=== PATIENT | male | born 1995 | race Two or more races ===

== ENCOUNTER 2016-11-23 06:56 | Day surgery (SDC) | payer OTHER ==
[~2016-11-23 06:56] MED LIST: BUPIVACAINE HCL 0.25 % INJ/PF (2.5 MG/1 ML) 30 ML VIAL ONE; CEFAZOLIN 2 GM/D5W RTU 2 GM/50 ML RTUPB IV PRN; LACTATED RINGERS 1000 ML IV PRN; LIDOCAINE 0.5% INJ-PF (5 MG/ML) 50 ML SDV SUBCUT PRN
[2016-11-23] MEDS ORDERED: MIDAZOLAM 2 MG/2 ML INJ ONE (09:03)
[2016-11-23] MEDS ORDERED: FENTANYL CITRATE INJ/PF 250 MCG/5 ML AMPULE ONE (09:03)
[2016-11-23] MEDS ORDERED: PROPOFOL INJ 200 MG/20 ML VIAL IV ONE (09:04)
[2016-11-23] MEDS ORDERED: PROMETHAZINE HCL INJ 25 MG/1 ML VIAL IV PRN ×2 (09:30)
[2016-11-23] MEDS ORDERED: ONDANSETRON HCL INJ/PF 4 MG/2 ML SDV IV PRN (09:30)
[2016-11-23] MEDS ORDERED: FENTANYL CITRATE INJ/PF 100 MCG/2 ML AMPUL IV PRN ×3 (09:30)
[2016-11-23] MEDS ORDERED: OXYCODONE-ACETAMINOPHEN 5-325 MG TABLET PO PRN ×2 (09:30)
[2016-11-23] MEDS ORDERED: MEPERIDINE HCL/PF INJ 25 MG/1 ML DISP.SYRIN IV PRN (09:30)
[2016-11-23] MEDS ORDERED: MORPHINE SULFATE 10 MG/ML INJ IV PRN (09:30)
[2016-11-23] MEDS ORDERED: DIPHENHYDRAMINE HCL 50 MG/ML VIAL IV PRN (09:30)
--- NOTE | 2016-11-23 10:33 | OPERATIVE REPORT E ---
Operative Report NAME: Carlos Hensley : 1995 AGE: 21Y DATE OF SURGERY: 11/23/2016 ROOM: PREOPERATIVE DIAGNOSIS: BILIARY DYSKINESIA. POSTOPERATIVE DIAGNOSIS: BILIARY DYSKINESIA. OPERATION: Laparoscopic cholecystectomy. SURGEON: Rebecca Gates M.D. INFUSION PHARMACIST: Lc. BLOOD LOSS: 5 mL. FLUIDS: 1100 crystalloid. COMPLICATIONS: There were no complications. INDICATIONS FOR OPERATION: The patient is a 21-year-old male with history of episodes of right upper quadrant pain. On workup had a low ejection fraction consistent with biliary dyskinesia. He was scheduled for elective cholecystectomy. PROCEDURE: In the supine position under general anesthesia, the patient's abdomen was sterilely prepped and draped after clipping with ChloraPrep in the usual fashion. A timeout was done. The skin below the umbilicus was infiltrated with 0.25% Marcaine, several milliliters, and incision was made with scalpel. The incision was carried down to the fascia, and a 1 cm Shell was inserted under direct vision at this location. A 5 mm trochar was then inserted in the epigastrium and two 5 mm trochars in the right upper quadrant. The patient was then placed in a head-up, [id number] position. The gallbladder was grasped with the fundus and infundibulum. The gallbladder was noted to be normal and very pliable, with no evidence of inflammation. The cystic duct was clearly identified and clipped x2 proximally after being dissected and once distally transected with kavya. The artery was also found within a thin envelope of peritoneal tissue, and this was also clipped x2 proximally and once distally and transected. The gallbladder was then dissected from the liver bed with Bovie using the L hook. There were no tears made in the gallbladder during the dissection. There was minimal bleeding from the liver bed controlled with coagulation. The gallbladder was then placed in a gallbladder bag and retrieved through the umbilical port. At this point, the trochars were inspected on removal. There was no evidence of bleeding. The umbilical fascia was then closed with 2 interrupted 0 Vicryl, and the skin was closed with subcuticular 4-0 Monocryl. Steri-Strips and dressings were applied. The patient was then extubated and taken to the recovery room awake in stable condition. Needle, instrument, and sponge counts were correct. DICTATING PHYSICIAN: REBECCA GATES M.D. [id number] PHY#: [id number] ID: [id number] JOB#: [id number] ACCT: [id number] cc:REBECCA GATES M.D. >
[2016-11-23] MEDS: FENTANYL CITRATE INJ/PF 100 MCG/2 ML AMPUL ONE ×2 (10:35→10:40)
[2016-11-23] MEDS ORDERED: HYDROCODONE/ACETAMINOPHEN 5-325 MG TABLET ONE (11:24)
[2016-11-23 13:44] VITALS: BP 116/67
[2016-11-23] MEDS ORDERED: DEXAMETHASONE SOD PHOSPHATE INJ 4 MG/1 ML VIAL ONE (14:08)
[2016-11-23] MEDS ORDERED: ONDANSETRON HCL INJ/PF 4 MG/2 ML SDV ONE (14:08)
[2016-11-23] MEDS ORDERED: METOCLOPRAMIDE HCL INJ/PF 10 MG/2 ML SDV ONE (14:08)
[2016-11-23] MEDS ORDERED: NEOSTIGMINE METHYLSULFATE 10 MG/10 ML VIAL ONE (14:08)
[2016-11-23] MEDS ORDERED: GLYCOPYRROLATE INJ 0.4 MG/2 ML VIAL ONE (14:08)
[2016-11-23] MEDS ORDERED: SUCCINYLCHOLINE CHLORIDE INJ 200 MG/10 ML VIAL ONE (14:08)
[2016-11-23] MEDS ORDERED: VECURONIUM BROMIDE INJ 10 MG VIAL IV ONE (14:08)
[2016-11-23] MEDS ORDERED: LIDOCAINE 2% INJ-PF (20 MG/ML) 10 ML AMPUL ONE (14:08)
== END 2016-11-23 12:25 | disposition home or self-care (01) ==
LOC: OROUT 06:56
PROVIDERS: ATTEND Surgery
PROC: 0FT44ZZ Resection of Gallbladder, Percutaneous Endoscopic Approach (ICD-10-PCS; principal; 2016-11-23 09:00)
DX: K82.8 Other specified diseases of gallbladder (principal)
CPT/HCPCS: 88304 ×2; 47562; J2250; J1100; J3010 ×2; J3490 ×2; J2765; J0330; J2405; J2704; J0690; 790